=== PATIENT | female | born 1980 | race Caucasian/White ===

== ENCOUNTER 2019-05-02 14:52 | Emergency (ER) | payer OTHER, SELFPAY ==
[2019-05-02 14:54] VITALS: BP 169/91; PULSE 68; RESP 14; TEMP 36.6; O2SAT 98
--- NOTE | 2019-05-02 14:57 | DI.RAD.S_ITS ---
PROCEDURE: XR FOOT LT MIN 3V INDICATIONS: crush injury lt lateral foot TECHNIQUE: 3 views of the foot were acquired. COMPARISON: None. FINDINGS: Bones: There is a displaced fracture through the diaphysis of the proximal phalanx of the left fifth digit. No other fracture or dislocation. Soft tissues: No tibiotalar joint effusion. Achilles tendon appears normal. IMPRESSION: Left fifth digit fracture as above. Dictated by: Collette Clifford M.D. on 05/02/2019 at 14:18 Approved by: Collette Clifofrd M.D. on 05/02/2019 at 14:19
[2019-05-02] MEDS: HYDROCODONE/ACET 5/325 TABLET 1 TAB PO (16:02)
[2019-05-02] MEDS: CEFAZOLIN 2 GM/100 ML FROZ.PIGGY IV (16:29)
[2019-05-02 17:25] VITALS: BP 140/80; PULSE 68; RESP 14; O2SAT 98
--- NOTE | 2019-05-02 19:40 | ED_ITS ---
HPI - Extremity Injury (Lower) <GERRY Lemus - Last Filed: 05/02/19 19:47> General Chief Complaint: Extremity Injury, Lower Stated Complaint: Hitch fell on left foot Time Seen by Provider: 05/02/19 15:30 Source: patient Mode of arrival: Ambulatory Limitations: no limitations History of Present Illness HPI Narrative: The patient is a 38-year-old female nonsmoker medical history who presents with a chief complaint of foot pain after dropping a metal hitch on to her left foot. She states she has a laceration overlying her pinky toe. She states that it hurts. She took Motrin. Happened just prior to arrival. She states that her tetanus is up-to-date as she received 1 last year. Related Data Previous Rx's Medication Instructions Recorded cephalexin 500 mg PO QID #40 cap 05/02/19 hydrocodone-acetaminophen [[place]] 1 tab PO Q4-6H PRN #10 tab 05/02/19 Review of Systems <GERRY Lemus - Last Filed: 05/02/19 19:47> Review of Systems Narrative: GENERAL: Denies chills, fatigue, malaise, fever, sweats. HEENT: Denies sinus pain, ear pain, sore throat, difficulty swallowing, dizziness. RESPIRATORY: Denies dyspnea, cough, wheezing, hemoptysis, sputum. CARDIOVASCULAR: Denies chest pain, palpitations, orthopnea, edema, GASTROINTESTINAL: Denies nausea, vomiting, abdominal pain, diarrhea, constipation, melena. : Denies dysuria, frequency, incontinence, hematuria, urinary retention. MUSCULOSKELETAL: See HPI SKIN: See HPI NEUROLOGIC: Denies weakness, headache, numbness, change in speech, confusion, seizures, incoordination. PSYCHIATRIC: No concerning psychosocial issues. 12 point review of systems is negative except for those stated above Patient History <GERRY Lemus - Last Filed: 05/02/19 19:47> Social History Smoking Status: Never smoker Exam <GERRY Lemus - Last Filed: 05/02/19 19:47> Narrative Exam Narrative: GENERAL: This is a well-nourished, well-developed patient, no acute distress HEAD: Atraumatic. Normocephalic. No temporal or scalp tenderness. EYES: Pupils equal round and reactive. Extraocular motions intact. No scleral icterus. No injection or drainage. ENT: Nose without bleeding, purulent drainage or septal hematoma. Throat without erythema, tonsillar hypertrophy or exudate. Uvula midline. Airway patent. NECK: Trachea midline. No JVD or lymphadenopathy. Supple, nontender, no meningeal signs. CARDIOVASCULAR: Regular rate and rhythm RESPIRATORY: No cough. No increased respiratory effort. No accessory muscle use. EXTREMITIES: swelling noted left 5th toe. Ecchymosis surrounding laceration. Laceration is 0.25 cm does not appear full-thickness. Decreased range of motion. Capillary refill less than 2 seconds. BACK: Nontender without deformity or crepitance. No flank tenderness. NEURO: AOx3. SKIN: See extremity exam Initial Vital Signs Initial Vital Signs: Vital Signs Temperature 97.8 F 05/02/19 14:54 Pulse Rate 68 05/02/19 14:54 Respiratory Rate 14 05/02/19 14:54 Blood Pressure 169/91 H 05/02/19 14:54 Pulse Oximetry 98 05/02/19 14:54 <Itzel Muñoz DO - Last Filed: 05/10/19 09:07> Initial Vital Signs Initial Vital Signs: Vital Signs Temperature 97.8 F 05/02/19 14:54 Pulse Rate 68 05/02/19 14:54 Respiratory Rate 14 05/02/19 14:54 Blood Pressure 169/91 H 05/02/19 14:54 Pulse Oximetry 98 05/02/19 14:54 Procedures <GERRY Lemus - Last Filed: 05/02/19 19:47> Orthopedic Splinting/Casting Injury #1: Side: left Lower Extremity Immobilizer: post-op shoe and mark tape Post splinting neuro exam: intact Post splinting vascular exam: intact Placed by: Nursing Scores <GERRY Lemus - Last Filed: 05/02/19 19:47> [facility] [place] coma scale eye opening: Spontaneous Anu coma scale verbal response: Orientated Anu coma scale motor response: [place]bey commands [place] coma scale total score: 15 Course <GERRY Lemus - Last Filed: 05/02/19 19:47> Orders Ordered: Discontinued Medications Hydrocodone Bitart/Acetaminophen ([place] 5/325) 1 tab PO NOW ONE Stop: 05/02/19 15:46 Last Admin: 05/02/19 16:02 Dose: 1 tab Documented by: MERCEDES Cefazolin Sodium (Ancef Vial) 2 gm IV NOW ONE Stop: 05/02/19 16:07 Last Admin: 05/02/19 16:22 Dose: Not Given Documented by: VEGA Cefazolin Sodium/Dextrose (Ancef) 2 gm in 100 mls @ 200 mls/hr IV NOW ONE Stop: 05/02/19 16:47 Last Infusion: 05/02/19 16:59 Dose: 0 mls/hr Documented by: Admin: 05/02/19 16:29 Dose: 200 mls/hr Documented by: VEGA Vital Signs Vital signs: Vital Signs - 8 hr 05/02/19 14:54 05/02/19 17:25 Temperature 97.8 F Pulse Rate 68 68 Respiratory Rate 14 14 Blood Pressure 169/91 H 140/80 Pulse Oximetry 98 98 <Itzel Muñoz DO - Last Filed: 05/10/19 09:07> Orders Ordered: Discontinued Medications Hydrocodone Bitart/Acetaminophen ([place] 5/325) 1 tab PO NOW ONE Stop: 05/02/19 15:46 Last Admin: 05/02/19 16:02 Dose: 1 tab Documented by: MERCEDES Cefazolin Sodium (Ancef Vial) 2 gm IV NOW ONE Stop: 05/02/19 16:07 Last Admin: 05/02/19 16:22 Dose: Not Given Documented by: VEGA Cefazolin Sodium/Dextrose (Ancef) 2 gm in 100 mls @ 200 mls/hr IV NOW ONE Stop: 05/02/19 16:47 Last Infusion: 05/02/19 16:59 Dose: 0 mls/hr Documented by: Admin: 05/02/19 16:29 Dose: 200 mls/hr Documented by: VEGA Vital Signs Vital signs: Vital Signs - 8 hr 05/02/19 14:54 05/02/19 17:25 Temperature 97.8 F Pulse Rate 68 68 Respiratory Rate 14 14 Blood Pressure 169/91 H 140/80 Pulse Oximetry 98 98 MDM - Extremity Injury (Lower) <GERRY Lemus - Last Filed: 05/02/19 19:47> Imaging Data Foot x-ray: Radiologist's impression: [address] [address] XRay Report Signed Patient: uJstine Livingston [facility]#: [id number] : 1980Acct:[id number] Age/Sex: 38 / FDate of Service: 05/02/19 Loc: ED Accession Number: [id number] Procedure: XR foot LT min 3V Ordering Provider: Itzel Muñoz D.O. PROCEDURE: XR FOOT LT MIN 3V INDICATIONS: crush injury lt lateral foot TECHNIQUE: 3 views of the foot were acquired. COMPARISON: None. FINDINGS: Bones: There is a displaced fracture through the diaphysis of the proximal phalanx of the left fifth digit. No other fracture or dislocation. Soft tissues: No tibiotalar joint effusion. Achilles tendon appears normal. IMPRESSION: Left fifth digit fracture as above. Dictated by: Collette Clifford M.D. on 05/02/2019 at 14:18 Approved by: Collette Clifford M.D. on 05/02/2019 at 14:19 [facility] Narrative Medical decision making narrative: The patient is a 38-year-old female who presents with a chief complaint of left 5th toe. She has a fracture of her left 5th toe, with overlying laceration. The she was treated for an open fracture, with 2 g Ancef and IV. I started her on Keflex. She was given [place] for pain, discussed that it would be constipating and sedating. The patient is returning to her home in [facility] tomorrow, so she would like to follow up there with her home PCP and orthopedist. I did give her a local contact information case it is needed. Discussed at length monitoring for worsening signs of infection including redness, pus, fever decreased range of motion. Encouraged prompt follow-up with those occur. Patient states understanding of return precautions as well as follow-up care and has no questions or concerns upon discharge Discharge Plan Departure Patient Disposition: Home Clinical Impression: Fracture of fifth toe, left, open Qualifiers: Encounter type: initial encounter Qualified Code(s): S92.502B - Displaced unspecified fracture of left lesser toe(s), initial encounter for open fracture Discharge Date/Time: 05/02/19 17:25 Instructions: DI for Toe Fracture, DI for Open Fracture Activity Restrictions/Additional Instructions: Today we found that you have a 5th toe fracture with overlying laceration. We have elected to treat you for an open fracture with antibiotics. Please take the antibiotics as prescribed. Please complete the whole course. Please take them with a probiotic or yogurt to help prevent antibiotic associated diarrhea or yeast infection Please follow up with primary care provider or orthopedist at your home location. I have included contact information for local providers if needed Please monitor for spreading redness, purulence discharge from the wound, or fever as these are all signs of infection. Please follow up immediately if these occur. Please come back to the emergency department for any acute concerns. You have been prescribed narcotic medications. While on these medications you cannot drive or operate heavy machinery. Additionally you cannot sign legal documents or perform any duties such as this. 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 Please understand that we cannot provide further refills of narcotics or controlled substances through the ED and your pain management will need to be through your Primary Care Provider Prescriptions: New cephalexin 500 mg capsule 500 mg PO QID Qty: 40 RF: 0 hydrocodone-acetaminophen [[place]] 5-325 mg tablet 1 tab PO Q4-6H PRN (Reason: pain) Qty: 10 RF: 0 Referrals: [facility] [Provider Group] [facility] Resources [Outside] Stand Alone Forms: Work Release Note
== END 2019-05-02 17:25 | disposition home or self-care (01) ==
PROVIDERS: Emergency Provider Nurse Practitioner Family
DX: S92.502B Displaced unspecified fracture of left lesser toe(s), initial encounter for open fracture (principal); W20.8XXA Other cause of strike by thrown, projected or falling object, initial encounter
CPT/HCPCS: 73630; 96365; 99283; 99284; J0690